=== PATIENT | male | born 1995 | race Caucasian/White ===

== ENCOUNTER 2019-10-28 18:24 | Emergency (ER) | payer BC, SELFPAY ==
--- NOTE | 2019-10-28 20:11 | RAD ---
LEFT HAND THREE VIEWS: History: Injury from trauma. FINDINGS: Minimal sclerosis in the mid navicular bone, probably a bone island. IMPRESSION: Minimal soft tissue swelling in the dorsal aspect of the hand at the distal metacarpal level. No frac ture or dislocation. POS: RRE
== END 2019-10-28 19:31 | disposition home or self-care (01) ==
LOC: ERS 18:24
DX: S60.222A Contusion of left hand, initial encounter (principal); W27.8XXA Contact with other nonpowered hand tool, initial encounter